=== PATIENT | male | born 1975 | race Caucasian/White ===

== ENCOUNTER 2023-01-01 08:48 | Emergency (ER) | payer OTHER, SELFPAY ==
[2023-01-01 08:53] VITALS: BP 146/87; PULSE 73; RESP 14; TEMP 37.2; O2SAT 100
--- NOTE | 2023-01-01 09:07 | ED.GENADUL_ITS ---
Discharge Plan Disposition Patient Disposition: Home Discharge Details Clinical Impression: Acute foreign body of left lower leg Primary Care Provider: Unknown,Unknown ED Provider: Chely Dobson Home Meds and New Rx's Prescriptions: No Action albuterol sulfate 90 mcg/actuation Hfa Aerosol Inhaler 2 inh INHALATION PRN PRN Discharge Instructions Instructions: Soft Tissue Foreign Body (ED), Puncture Wound (ED) Additional Instructions: X-rays do indicate that you have a small piece of metal in the soft tissue of the left calf, I was unable to remove it manually. Please follow-up with your PCP or orthopedics in your hometown. Be seen sooner for any signs of infection including red streaks, drainage increased redness or swelling. Please take Tylenol or Ibuprofen with food every 4-6 hours as needed for pain and swelling. Follow up with primary care provider in 3-5 days. Return to ED sooner if any worsening or concerns. Increase oral fluids. Stand Alone Forms: Work Release Discharge Data Discharge Date/Time-TO BE ENTERED AT DEPARTURE: 01/01/23 10:35 Medical Decision Making 47-year-old male presents to the ER with a chief complaint of left lower leg pain. Patient reports on Thursday he was hammering some metal and potentially cut a piece of metal into his left calf. He does have a puncture wound on the medial aspect of his left calf. No surrounding induration or erythema or signs of infection. He does report that now when he places weight on his leg he has some pain radiating down to his left ankle and some tingling. He is unsure of his last tetanus vaccination status. We will update it today. Distal CMS is intact no other complaints or concerns. X-ray shows foreign body noted, unable to visualize with ultrasound or palpation. I did numb the area and explore slightly with a forcep I was unable to feel the foreign body. Did discuss follow-up with patient and discussed that the risks of foreign body retrieval outweighed the benefits. I did discuss strict return instructions patient was given a disc of the x-rays and instructed to follow-up in his hometown as [place]. He verbalized understanding. This text was generated using [employer] system, please disregard any oddities of phrase or misspellings. Imaging Data Radiologic Study: Imaging: X-Ray Radiologist's impression: EXAM:? XR TIB/FIB LT CLINICAL HISTORY: ? R/O Foreign body.? TECHNIQUE:? 2D digital imaging was performed.? Two views of the leg.? Three views of the ankle. COMPARISON:? CR XR ANKLE LT COMPLETE from 01/01/2023 FINDINGS: BONES: No acute fracture is present. No bony destructive lesion is seen. Visualized portion of knee is unremarkable.? Smoothly marginated bony densities are noted beneath the lateral malleolus related to old trauma.? There is some spurring at the medial malleolus and adjacent medial talus. SOFT TISSUE: Metallic foreign body seen in posteromedial calf region. IMPRESSION: Metallic foreign body in medial soft tissues of the calf. HPI General Mode of arrival: ambulatory . Date/Time Provider Initiated Documentation: 01/01/23 09:00 . Limitations to Documentation: no limitations . Information obtained by: patient, RN notes reviewed and old records reviewed . HPI Narrative: 47-year-old male presents to the ER with a chief complaint of left lower leg pain. Patient reports on Thursday he was hammering some metal and potentially cut a piece of metal into his left calf. He does have a puncture wound on the medial aspect of his left calf. No surrounding induration or erythema or signs of infection. He does report that now when he places weight on his leg he has some pain radiating down to his left ankle and some tingling. He is unsure of his last tetanus vaccination status. We will update it today. Distal CMS is intact no other complaints or concerns. Related Data Home Medications Medication Instructions Recorded Confirmed albuterol sulfate 90 mcg/actuation 2 inh inhalation PRN PRN 01/01/23 01/01/23 aerosol inhaler Allergies Allergy/AdvReac Type Severity Reaction Status Date / Time No Known Allergies Allergy Unverified 01/01/23 08:59 General Stated Complaint: Laceration CORINNA: 4 Review of Systems All systems reviewed & are unremarkable except as noted in HPI and below Musculoskeletal Musculoskeletal: Reports as per HPI and Reports tingling Integumentary/Breasts Skin/Breast: Reports wounds Neurologic Neurologic: Reports tingling PFSH All Active Problems (Updated 01/01/23 @ 10:13 by Chely Dobson NP) Acute foreign body of left lower leg (Acute) Social History Smoking/Tobacco Use Status: Former Tobacco Use Smoking risk assessment performed?: Yes Alcohol Intake: current Alcohol Intake frequency: a few times a week Drug use: Never Substance use type: does not use Do you feel safe at home: Yes Do you feel safe in your relationship?: Yes Exam Extrem Left lower extremity: normal capillary refill and lower leg Details: penetrating wound mid lower leg medial Details: single Upper/lower leg/hip images: 1. Small puncture wound noted Course Vital Signs Vital signs: Vital Signs Temperature 37.2 C 01/01/23 08:53 Pulse 73 01/01/23 08:53 Respiratory Rate 14 01/01/23 08:53 Blood Pressure 146/87 H 01/01/23 08:53 Pulse Oximetry 100 01/01/23 08:53 Temperature 37.2 C 01/01/23 08:53 Temperature Source Skin 01/01/23 08:53 Pulse 73 01/01/23 08:53 Respiratory Rate 14 01/01/23 08:53 Respiratory Effort Normal 01/01/23 09:00 Blood Pressure 146/87 H 01/01/23 08:53 Blood Pressure Position Sitting 01/01/23 08:53 Pulse Oximetry 100 01/01/23 08:53 Oxygen Delivery Method Room Air 01/01/23 08:53 Oxygen Flow Rate 0 01/01/23 08:53 Pain Level 3 01/01/23 09:03 Procedures Foreign Body Removal Time Out Performed: yes Site: left and lower extremity Description of foreign body: other (Piece of metal) Sedation/Analgesia: none Technique: removal with forceps and bedside ultrasound guidance Confirmed by:: radiograph, ultrasound and other (Unsuccessful foreign body removal) Complications: none Post-procedure exam: awake, alert Neurovascular: normal distal pulse, normal capillary fill, distal light touch sensation intact, distal motor function normal and no change from pre-procedure PAWSS Have you Been Recently Intoxicated or Drunk Within the Last 30 days?: No Have you Ever Experienced Previous Episodes of Alcohol Withdrawal?: No Have you ever Experienced Withdrawal Seizures?: No Have you ever Experienced Delirium Tremens(DT)s?: No Have you ever undergone Alcohol Rehabilitation Treatment (i.e, inpt ot outpati ent treatment programs)?: No Have you ever Experienced Blackouts?: No Have you ever Combined Alcohol with other Downers within the last 90 days?: No Have you ever Combined Alcohol with any other Substance of Abuse during the last 90 days?: No Positive Blood Alcohol level on Presentation? [PCS.BAL]: No Evidence of Increased Autonomic Activity (i.e. HR>120, tremor, sweating, agit ation, nausea)?: No Result: 0
--- NOTE | 2023-01-01 09:29 | DI.RAD_ITS ---
Exam(s) XR TIB/FIB LT XR ANKLE LT COMPLETE EXAM: XR TIB/FIB LT CLINICAL HISTORY: R/O Foreign body. TECHNIQUE: 2D digital imaging was performed. Two views of the leg. Three views of the ankle. COMPARISON: CR XR ANKLE LT COMPLETE from 01/01/2023 FINDINGS: BONES: No acute fracture is present. No bony destructive lesion is seen. Visualized portion of knee i s unremarkable. Smoothly marginated bony densities are noted beneath the lateral malleolus related t o old trauma. There is some spurring at the medial malleolus and adjacent medial talus. SOFT TISSUE: Metallic foreign body seen in posteromedial calf region. IMPRESSION: Metallic foreign body in medial soft tissues of the calf. DATA REPOSITORY: RADIATION DOSE DELIVERED:
== END 2023-01-01 10:35 | disposition home or self-care (01) ==
PROVIDERS: Emergency Provider Registered Nurse Emergency
DX: S81.842A Puncture wound with foreign body, left lower leg, initial encounter (principal); R20.2 Paresthesia of skin; W26.8XXA Contact with other sharp object(s), not elsewhere classified, initial encounter; Z23 Encounter for immunization
CPT/HCPCS: 90471; 99284; 73590; 73610; 99283